=== PATIENT | male | born 1955 | race Caucasian/White ===

== ENCOUNTER 2020-03-13 15:03 | Emergency (ER) | payer OTHER, SELFPAY ==
[~2020-03-13] VITALS: Ht 180.3 cm; Wt 80.6 kg
[2020-03-13 16:52] LABS: TROPONIN I < 0.015 ng/mL (0.000-0.045)
[2020-03-13 17:19] VITALS: BP 132/83
== END 2020-03-13 17:21 | disposition home or self-care (01) ==
LOC: ED 15:27
DX: R07.89 Other chest pain (principal)
CPT/HCPCS: 36415; 71045; 84484; 93005; 99285

== ENCOUNTER → 2020-06-16 | Outpatient (CLI) | payer OTHER | END | disposition home or self-care (01) | LOC: CFH 08:50 | PROVIDERS: ATTEND Internal Medicine Cardiovascular Disease | DX: I25.9 Chronic ischemic heart disease, unspecified (principal); I25.10 Atherosclerotic heart disease of native coronary artery without angina pectoris; R07.89 Other chest pain; E78.2 Mixed hyperlipidemia | CPT/HCPCS: 75571; 78452; 93017; A9502 ==

== ENCOUNTER 2020-10-08 08:44 | Day surgery (SDC) | payer OTHER ==
[~2020-10-08] VITALS: Ht 180.3 cm; Wt 79.5 kg
[2020-10-08] MEDS ORDERED: ASPI81TA45 PO (09:29)
[2020-10-08] MEDS ORDERED: ATOR20TA PO (09:29)
[2020-10-08 09:37] VITALS: BP 128/69
[2020-10-08] MEDS ORDERED: FENTANYL PF 100 MCG/2ML ONE (10:36)
[2020-10-08] MEDS ORDERED: LIDOCAINE-MPF 1%, 5ML ONE (10:37)
[2020-10-08] MEDS ORDERED: VERAPAMIL 2.5 MG/ML, 2ML ONE (10:37)
[2020-10-08] MEDS ORDERED: MIDAZOLAM 1 MG/ML, 2ML ONE (10:37)
[2020-10-08] MEDS ORDERED: HEPARIN 1,000 UNITS/ML, 10ML ONE (10:37)
[2020-10-08] MEDS ORDERED: SODIUM CHLORIDE 0.9% 1,000 ML IV SCH (11:30)
== END 2020-10-08 12:50 | disposition home or self-care (01) ==
LOC: CACL 08:44
PROVIDERS: ATTEND Internal Medicine Cardiovascular Disease
DX: R93.1 Abnormal findings on diagnostic imaging of heart and coronary circulation (principal); I25.10 Atherosclerotic heart disease of native coronary artery without angina pectoris; I25.83 Coronary atherosclerosis due to lipid rich plaque; E78.5 Hyperlipidemia, unspecified; Z79.82 Long term (current) use of aspirin; Z79.899 Other long term (current) drug therapy; Z82.49 Family history of ischemic heart disease and other diseases of the circulatory system
CPT/HCPCS: 93458; 99156; C1769; C1894; J1644; J2250; J3010; Q9967